=== PATIENT | female | born 2000 | race Caucasian/White ===

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

== ENCOUNTER 2020-02-13 09:10 | Emergency (ER) | payer BC, OTHER ==
[~2020-02-13] VITALS: Ht 162.6 cm; Wt 45.4 kg
[2020-02-13] MEDS ORDERED: ONDANSETRON 4 MG/2 ML VIAL IM ONE ×2 (09:30→10:15)
[2020-02-13] MEDS ORDERED: HYDROMORPHONE 1 MG/1 ML DISP.SYRIN IM ONE ×2 (09:30→10:15)
[2020-02-13] MEDS ORDERED: ONDANSETRON 4 MG/2 ML VIAL ONE ×2 (09:32→10:16)
[2020-02-13] MEDS ORDERED: HYDROMORPHONE 2 MG/1 ML DISP.SYRIN ONE ×2 (09:32→10:16)
[2020-02-13 11:31] VITALS: BP 109/62
== END 2020-02-13 11:30 | disposition home or self-care (01) ==
LOC: ER 09:10
DX: G89.18 Other acute postprocedural pain (principal); M25.561 Pain in right knee
CPT/HCPCS: 96372 ×2; 99284; J1170 ×2; J2405 ×2; A4663